=== PATIENT | female | born 1965 | race Caucasian/White ===

== ENCOUNTER 2021-02-11 00:44 | Emergency (ER) | payer SELFPAY ==
[~2021-02-11] VITALS: Ht 170.2 cm; Wt 129.5 kg
[2021-02-11 00:50] VITALS: BP 141/65; Ht 170.2 cm; Wt 129.5 kg
[2021-02-11] MEDS ORDERED: AUGMENTIN 875-11 TAB PO (00:52)
[2021-02-11 02:24] LABS: BASOPHILS 0.6 % (0-2); EOSINOPHILS 3.6 % (0-7); HEMATOCRIT 39.1 % (36.0-48.0); HEMOGLOBIN 12.9 g/dL (12-16); LYMPHOCYTES 18.6 % (15-50); MCH 27.2 pg (26.0-34.0); MCV 82.6 fL (80.0-100.0); MEAN PLATELET VOLUME 8.8 fL (7.4-10.4); MONOCYTES 10.9 % (2-11); NEUTROPHILS 66.3 % (40-80); PLATELET COUNT 208 10x3/uL (130-400); RBC 4.73 10x6/uL (4.00-5.40); RDW 14.1 % (11.5-14.5); WBC 7.5 10x3/uL (4.8-10.8)
[2021-02-11 02:34] LABS: CALC OSMOLALITY 286 mosm/kg (275-300); CARBON DIOXIDE 25.8 mmol/L (21.0-32.0); CHLORIDE - SERUM 105 mmol/L (98-107); CREATININE - SERUM 0.8 mg/dL (0.6-1.3); GLUCOSE 167 mg/dL (74-106); POTASSIUM - SERUM 3.7 mmol/L (3.5-5.1); SODIUM 142 mmol/L (136-145); UREA NITROGEN 12 mg/dL (7-18); eGFR NON AFRICAN AMERICAN 78 mL/min (90-120)
[2021-02-11 02:55] LABS: MONO NEGATIVE (NEGATIVE)
[2021-02-11] MEDS ORDERED: HYDROCODON-ACE1 EAC7 PO (05:11)
[2021-02-11] MEDS ORDERED: CLEOCIN HCL300 MG PO (05:11)
[2021-02-11] MEDS ORDERED: DIFLUCAN150 MG PO (05:11)
[2021-02-12 08:13] LABS: EBV - NUCLEAR ANTIGEN AB IGG >600.0 U/mL (0.0-17.9); EBV VIRAL CAPSID AB IGG >600.0 U/mL (0.0-17.9); EBV VIRAL CAPSID AB IGM <36.0 U/mL (0.0-35.9)
== END 2021-02-11 05:28 | disposition home or self-care (01) ==
LOC: D.ER 00:44
PROVIDERS: Emergency Medicine
DX: L03.221 Cellulitis of neck (principal); Q18.0 Sinus, fistula and cyst of branchial cleft; R73.9 Hyperglycemia, unspecified